=== PATIENT | male | born 1955 | race Caucasian/White ===

== ENCOUNTER 2016-03-16 07:41 | Emergency (ER) | payer BC ==
[2016-03-16 08:12] VITALS: BP 116/70
--- NOTE | 2016-03-16 08:37 | RAD ---
HISTORY: Fall, left-sided pain COMPARISONS: None VIEWS: 3, Frontal view of the pelvis with frontal and frog-leg views of the left hip FINDINGS: BONE DENSITY: Normal. BONES: There is no displaced fracture. JOINTS: There is mild osteoarthritis of the hips. ALIGNMENT: There is no dislocation. SOFT TISSUES: Unremarkable. OTHER FINDINGS: None. IMPRESSION: NO RADIOGRAPHIC EVIDENCE FOR HIP FRACTURE. X-RAYS MAY BE NEGATIVE WITH NONDISPLACED HIP FRACTURE, IF THERE IS PERSISTENT CLINICAL CONCERN, RECOMMEND CONSIDERATION OF MRI. IN THE SETTING OF CONTRAINDICATION TO MRI OR LIMITATION IN EMERGENT ACCESS TO MRI, CT WOULD BE SUGGESTED.
--- NOTE | 2016-03-16 08:38 | RAD ---
HISTORY: Fall on left shoulder, left shoulder pain COMPARISONS: None VIEWS: 3, Frontal internal rotation, external rotation, and outlet views of the left shoulder FINDINGS: BONE DENSITY: Normal. BONES: There is no displaced fracture. JOINTS: There is no arthropathy. ALIGNMENT: There is no dislocation. SOFT TISSUES: Unremarkable. OTHER FINDINGS: None. IMPRESSION: NO ACUTE OSSEOUS INJURY. IF SYMPTOMS PERSIST, RECOMMEND REPEAT IMAGING.
--- NOTE | 2016-03-16 08:40 | RAD ---
Indication: Traumatic neck pain. 5 views of the cervical spine demonstrates vertebral bodies to be normal in height. Degenerative disc disease with disc space narrowing at C5-C6 is noted. Intervertebral foramen all appear patent. C6 and C7 are not visualized in its entirety. IMPRESSION: Degenerative disc disease at C5-C6. No fractures identified. Limited evaluation of C6, C7 and T1.
--- NOTE | 2016-03-16 09:20 | UC ---
Neck Pain HPI - HPI Summary HPI Summary: S/P FALL ON HIS LEFT SIDE THIS MORNING , INJURY TO HIS NECK, LEFT SHOULDER AND LEFT HIP . 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 Negative: Swelling, Redness, Bruising, Fever, Nuchal Rigity, Headache, Paresthesia - Allergies/Home Medications Allergies/Adverse Reactions: Allergies Allergy/AdvReac Type Severity Reaction Status Date / Time No Known Allergies Allergy Verified 03/16/16 07:57 Home Medications: Home Medications Diazepam TAB(*) [Valium TAB(*)] 5 mg PO Q6H PRN 03/16/16 [History Confirmed ] HYDROcodone/ACETAMIN 5-325 MG* [Hiko 5-325 TAB*] 1 tab PO Q6H PRN 03/16/16 [ History Confirmed 03/16/16] Tizanidine HCl 2 mg PO Q4H PRN 03/16/16 [History Confirmed 03/16/16] PMH/Surg Hx/FS Hx/Imm Hx Cardiovascular History Of: Reports: Hypertension - Surgical History Surgical History: Yes Surgery Procedure, Year, and Place: left knee; gastric bypass and appy 1997, tonsils, back - Family History Known Family History: Positive: Hypertension - Social History Alcohol Use: Rare Substance Use Type: None Smoking Status (MU): Former Smoker Review Of Systems Constitutional: Positive: Negative Skin: Positive: Negative Eyes: Positive: Negative ENT: Positive: Negative Respiratory: Positive: Negative Cardiovascular: Positive: Negative All Other Systems Reviewed And Are Negative: Yes Physical Exam Triage Information Reviewed: Yes Appearance: Ill-Appearing, Pain Distress, Obese Vital Signs: Initial Vital Signs Temp 97.6 F 03/16/16 07:44 Pulse 79 03/16/16 07:44 Resp 18 01/31/17 07:44 BP 116/70 03/16/16 07:44 Vital Signs Reviewed: Yes Eyes: Positive: Conjunctiva Clear ENT: Positive: Normal ENT inspection, Hearing grossly normal, Pharynx normal Neck: Positive: Tenderness @, Other: - decrease ROM on rotation to left. Negative: Enlarged Nodes @ Respiratory: Positive: Chest non-tender, Lungs clear, Normal breath sounds, No respiratory distress Cardiovascular: Positive: RRR, No Murmur, Pulses Normal Abdominal Exam: Normal Abdomen Description: Positive: Nontender Bowel Sounds: Positive: Present Musculoskeletal: Positive: Other: - left shoulder : no swelling , diffuse tenderness, limited ROM on flexion and extension left hip: no swelling, + diffuse tenderness, pain with hip flexion and extension Neck Pain Course/Dx - Differential Dx/Diagnosis Provider Diagnoses: contusio left hip. contusion left shoulder. sprain neck Discharge - Discharge Plan Condition: Stable Disposition: HOME Patient Education Materials: Cervical Strain (ED), Rotator Cuff Injury (ED), Hip Contusion (ED) Forms: *Work Release Referrals: Guero Rodgers MD [Medical Doctor] - 3 Days Cornelia Aleman PA [Primary Care Provider] - 7 Days
== END 2016-03-16 09:39 | disposition home or self-care (01) ==
LOC: UCCORT 07:41
DX: S70.02XA Contusion of left hip, initial encounter (principal); S40.012A Contusion of left shoulder, initial encounter; S16.1XXA Strain of muscle, fascia and tendon at neck level, initial encounter; M50.322 Other cervical disc degeneration at C5-C6 level; W19.XXXA Unspecified fall, initial encounter; Y92.9 Unspecified place or not applicable; Z98.84 Bariatric surgery status; Z87.891 Personal history of nicotine dependence
CPT/HCPCS: 72050; 99202; G0463

== ENCOUNTER 2016-11-23 07:40 | Emergency (ER) | payer BC ==
[2016-11-23 07:53] VITALS: BP 106/77
--- NOTE | 2016-11-23 08:17 | UC ---
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 Onset/Duration: Sudden Onset, Lasting Days - 1, Still Present Timing: Constant Severity Initially: Moderate Severity Currently: Moderate Character: Sharp Aggravating Factor(s): Movement Alleviating Factor(s): Rest Associated Signs And Symptoms: Negative: Swelling, Redness, Bruising, Fever, Weakness, Numbness/Tingling - Allergies/Home Medications Allergies/Adverse Reactions: Allergies Allergy/AdvReac Type Severity Reaction Status Date / Time No Known Allergies Allergy Verified 11/23/16 07:53 PMH/Surg Hx/FS Hx/Imm Hx - Additional Past Medical History Additional PMH: obesity gastric bypass - Surgical History Surgical History: Yes Surgery Procedure, Year, and Place: left knee; gastric bypass and appy 1997, tonsils, back - Family History Known Family History: Positive: Hypertension - Social History Alcohol Use: Rare Substance Use Type: None Smoking Status (MU): Former Smoker When Did the Patient Quit Smoking/Using Tobacco: 1970s Review of Systems Constitutional: Negative Skin: Negative Eyes: Negative ENT: Negative Respiratory: Negative Is Patient Immunocompromised?: No All Other Systems Reviewed And Are Negative: Yes Physical Exam Triage Information Reviewed: Yes Appearance: Pain Distress, Obese Vital Signs: Initial Vital Signs Temp 97.3 F 11/23/16 07:44 Pulse 88 11/23/16 07:44 Resp 18 11/23/16 07:44 BP 106/77 11/23/16 07:44 Pulse Ox 97 11/23/16 07:44 Vital Signs Reviewed: Yes Eyes: Positive: Conjunctiva Clear ENT: Positive: Normal ENT inspection, Hearing grossly normal, Pharynx normal Neck exam: Normal Neck: Positive: Supple, Nontender, No Lymphadenopathy Respiratory: Positive: Chest non-tender, Lungs clear, Normal breath sounds Cardiovascular: Positive: RRR, No Murmur, Pulses Normal Abdominal Exam: Normal Musculoskeletal: Positive: Other: - right upper back : no swelling , no erythem , + sever tenderness to touch , + 2 cm cyst , no inflammation of the cyst Neurological: Positive: Alert, Muscle Tone Normal Shoulder Course/Dx - Differential Dx/Diagnosis Provider Diagnoses: right upper back strain Discharge - Discharge Plan Condition: Stable Disposition: HOME Prescriptions: Cyclobenzaprine TAB* [Flexeril 10 MG TAB*] 10 mg PO TID #30 tab Patient Education Materials: Cervical Radiculopathy (ED), Back Pain (ED) Referrals: Cornelia Aleman PA [Primary Care Provider] - 7 Days Additional Instructions: pinch nerve on your upper back rest, use heating pads muscle relaxant follow up with your pcp in one week if not better
== END 2016-11-23 08:46 | disposition home or self-care (01) ==
LOC: UCCORT 07:40
DX: S29.012A Strain of muscle and tendon of back wall of thorax, initial encounter (principal); E66.9 Obesity, unspecified; Z68.41 Body mass index [BMI] 40.0-44.9, adult; X58.XXXA Exposure to other specified factors, initial encounter; Z87.891 Personal history of nicotine dependence
CPT/HCPCS: 99212; G0463